=== PATIENT | female | born 1980 | race Caucasian/White ===

== ENCOUNTER 2018-01-03 23:18 | Emergency (ER) | payer OTHER ==
[2018-01-03 23:48] LABS: Hemoglobin 11.3 g/dL (12.0-16.0); Mean Corpuscular HGB CONC 31.7 g/dL (32.0-36.0); Mean Corpuscular Hemoglobin 24.9 pg (27.0-31.0); Mean Corpuscular Volume 78.4 fL (78.0-98.0); Platelet Count 184 thou/uL (130-400); RBC Distribution Width 13.9 % (11.5-14.5); Red Blood Cell (RBC) Count 4.53 mill/uL (4.20-5.40); White Blood Cell (WBC) Count 6.1 thou/uL (4.8-10.8)
[2018-01-04 00:01] LABS: BHCG - Serum Negative (NEGATIVE); Pregs Control Background? CLEAR/WHITE (CLR/WHITE); Pregs Control Bar Appear? YES (CONTROL BAR)
[2018-01-04 00:06] LABS: #Eosinphils 0.1 thou/uL (0.0-0.7); #Lymphocytes 1.7 thou/uL (1.20-3.40); #Monocytes 0.4 thou/uL (0.11-0.59); #Neutrophils 3.8 thou/uL (1.40-6.50); %Basophils 0.3 % (0.0-1.0); %Eosinophils 2.4 % (0.0-10.0); %Lymphocytes 27.2 % (21.0-51.0); %Monocytes 6.9 % (0.0-10.0); %Neutrophils 63.2 % (42.0-75.0)
[2018-01-04 00:08] LABS: ALT (SGPT) 19 U/L (8-55); AST (SGOT) 17 U/L (5-34); Albumin 3.9 g/dL (3.5-5.0); Alkaline Phosphatase 102 U/L (40-150); Anion Gap 12 mmol/L (10-20); BUN (Urea Nitrogen) 10 mg/dL (7.0-18.7); Bilirubin, Total 0.3 mg/dL (0.2-1.2); Calc. Creatinine Clearance 0 mL/min (70-130); Calcium 9.2 mg/dL (7.8-10.44); Carbon Dioxide 25 mmol/L (22-29); Chloride 106 mmol/L (98-107); Estimated GFR-MDRD 59; Globulin 3.4 g/dL (2.4-3.5); Glucose 144 mg/dL (70-105); Lipase 14 U/L (8-78); Potassium 3.9 mmol/L (3.5-5.1); Protein, Total 7.3 g/dL (6.0-8.3); Sodium 139 mmol/L (136-145)
[2018-01-04 00:23] LABS: Bilirubin Negative (Negative); Blood, Urine Negative (Negative); Clarity CLOUDY (Clear); Glucose, Urine (Dipstick) Negative (Negative); Leukocyte Negative (Negative); Nitrite Negative (Negative); Protein, Urine (Dipstick) Negative (Neg-Trace); Specific Gravity, Urine 1.018 (1.002-1.036); Urobilinogen 0.2 mg/dL (0.2-1.0)
[2018-01-04] MEDS ORDERED: Mag-Al 1200 mg/1200 mg/30 ML UDCUP ONE (01:52)
[2018-01-04] MEDS ORDERED: Lidocaine Viscous Sol 2% 15 ml UD Cup ONE (01:52)
[2018-01-04] MEDS ORDERED: Sucralfate 1 GM/10 ML UDCUP ONE (01:52)
[2018-01-04] MEDS ORDERED: Ondansetron ODT 8 MG TAB ONE (01:52)
--- NOTE | 2018-01-04 08:39 | ULT ---
PRELIMINARY REPORT/[facility]/EMERGENTY AFTER-HOURS PROCEDURE US Abdomen Limited, Right Upper Quadrant EXAM DATE/TIME: 01/04/2018 2:31 AM CLINICAL HISTORY: 37 years old, female; Pain; Other: Upper abd TECHNIQUE: Real-time ultrasound of the abdomen with image documentation. Examination was focused on the right up per quadrant. COMPARISON: No relevant prior studies available. FINDINGS: Liver: Normal. No masses. Gallbladder: Cholelithiasis including a gallstone at the neck of the gallbladder. No pericholecystic fluid. Portions of the gallbladder wall appears mildly thickened. Sonographic Barnett's sign reported as "slightly positive." Common bile duct: Normal. No stones. No dilation. Pancreas: Visualized pancreas is unremarkable. Right kidney: Normal. No mass. No hydronephrosis. IMPRESSION: Cholelithiasis. "Slightly positive" sonographic Barnett's sign and portions of the gallbladder wall wh ich appear mildly thickened are suspicious for acute cholecystitis. Thank you for allowing us to participate in the care of your patient. Dictated and Authenticated by: Adonis Akers MD 01/04/2018 3:26 AM Central Time ([place] & [place]) FINAL REPORT EMERGENCY AFTER HOURS RIGHT UPPER QUADRANT ULTRASOUND: Date: 01/04/18 HISTORY: Upper abdominal pain. IMPRESSION: 1. Cholelithiasis with a calculus within the region of the neck of the gallbladder measuring 1.9 cm in diameter. The gallbladder is not distended. Portions of the gallbladder wall are mildly thickened, measuring up to 0.4 cm. There is no pericholecystic fluid seen. hot cell technician does note slig htly positive sonographic Barnett's sign. In the correct clinical scenario, findings could be related to cholecystitis. 2. Common duct normal in caliber, measuring 0.3 cm. 3. Pancreas is obscured due to shadowing from bowel gas. Findings are in agreement with the preliminary report by Devan. POS: [facility]
== END 2018-01-04 04:09 | disposition home or self-care (01) ==
LOC: ERS 23:18
DX: K80.20 Calculus of gallbladder without cholecystitis without obstruction (principal)
CPT/HCPCS: 36415; 76705; 80053; 81003; 83690; 84703; 85025; 87077; 87086; 93005